=== PATIENT | male | born 1985 | race African-American/Black ===

== ENCOUNTER 2018-09-23 16:45 | Emergency (ER) | payer MEDICAID ==
[~2018-09-23] VITALS: Ht 172.7 cm; Wt 88.0 kg
[2018-09-23 16:54] VITALS: BP 133/75
== END 2018-09-23 20:40 | disposition left against medical advice (07) ==
LOC: ER 16:45
DX: M79.645 Pain in left finger(s) (principal); Z53.21 Procedure and treatment not carried out due to patient leaving prior to being seen by health care provider